=== PATIENT | female | born 1960 | race Caucasian/White ===

== ENCOUNTER 2024-03-01 15:42 | Emergency (ER) | payer OTHER, SELFPAY ==
[2024-03-01 15:46] VITALS: BP 141/74; PULSE 63; TEMP 36.7; O2SAT 98; BMI 42.9
--- NOTE | 2024-03-01 16:02 | ED_ITS ---
HPI HPI - General Adult General Chief complaint: Back Pain/Injury Stated complaint: FLANK PAIN Time Seen by Provider: 03/01/24 15:56 Source: patient Mode of arrival: walk-in Limitations: no limitations History of Present Illness HPI narrative: 63-year-old female presents for pain in her right lateral flank area. She has had it since yesterday. She does a lot of twisting at work. She did not fall and nothing struck her in that area. No dysuria or hematuria. She has no pain if she sits still but if she moves then she has pain. No pain on the contralateral side. Related Data Home Medications ?Medication ?Instructions ?Recorded ?Confirmed amlodipine 2.5 mg tablet 2.5 mg PO DAILY 03/01/24 03/01/24 aripiprazole 10 mg tablet 10 mg PO DAILY 03/01/24 03/01/24 hydrochlorothiazide 25 mg tablet 25 mg PO DAILY 03/01/24 03/01/24 lamotrigine 200 mg tablet 200 mg PO DAILY 03/01/24 03/01/24 levothyroxine 75 mcg tablet 75 mcg PO DAILY 03/01/24 03/01/24 propranolol 80 mg capsule,24 80 mg PO DAILY 03/01/24 03/01/24 hr,extended release rosuvastatin 20 mg tablet 20 mg PO DAILY 03/01/24 03/01/24 venlafaxine 75 mg capsule,extended 75 mg PO DAILY 03/01/24 03/01/24 release 24 hr Previous Rx's ?Medication ?Instructions ?Recorded ibuprofen 800 mg tablet 800 mg PO Q8H PRN pain #20 tabs 03/01/24 methocarbamol 500 mg tablet 500 mg PO Q8H PRN pain #20 tabs 03/01/24 Allergies Allergy/AdvReac Type Severity Reaction Status Date / Time No Known Drug Allergies Allergy Verified 03/01/24 15:46 Opioid HPI Opioid Management Most Recent Opioid Data: Last Pain Scale 6 03/01/24 16:11 Last MAR Pain Assessment 03/01/24 16:11 Review of Systems ROS Narrative A ten point review of systems is negative except as noted above. Exam Narrative Exam Narrative: Nurses note and vital signs reviewed and patient is not hypoxic. General: The patient appears well and in no apparent distress. Patient is resting comfortably on cart. Skin: Warm, dry, no pallor noted. There is no rash noted. Head: Normocephalic, atraumatic Eye: Normal conjunctiva, no drainage Ears, Nose, Mouth, and Throat: oral mucosa is moist. Nares patent. Cardiovascular: Regular Rate and Rhythm Respiratory: Patient is in no distress, no accessory muscle use, lungs are clear to auscultation, no wheezing, rales or rhonchi Back: No bruise or rash to back. No palpable tenderness in the flank area. GI: Soft and nontender Musculoskeletal: No joint swelling Neurological: A&O, normal speech Psychiatric: Cooperative Constitutional Vital Signs, click to edit/add: Last Vital Signs Temp 98.0 F 03/01/24 15:46 Pulse 63 03/01/24 15:46 Resp 18 03/01/24 15:46 BP 141/74 03/01/24 15:46 Pulse Ox 98 03/01/24 15:46 O2 Del Method Room Air 03/01/24 15:46 Course Vital Signs Vital signs: Vital Signs Temperature 98.0 F 03/01/24 15:46 Pulse Rate 63 03/01/24 15:46 Respiratory Rate 18 03/01/24 15:46 Blood Pressure 141/74 03/01/24 15:46 Pulse Oximetry 98 03/01/24 15:46 Oxygen Delivery Method Room Air 03/01/24 15:46 Temperature 98.0 F 03/01/24 15:46 Pulse Rate 63 03/01/24 15:46 Respiratory Rate 18 03/01/24 15:46 Blood Pressure 141/74 03/01/24 15:46 Pulse Oximetry 98 03/01/24 15:46 Oxygen Delivery Method Room Air 03/01/24 15:46 Medical Decision Making [facility] Narrative Medical decision making narrative: Urinalysis is negative. There is no evidence of UTI or kidney stone. She is feeling improved after being given Toradol and is prescribed ibuprofen and Robaxin. Treatment diagnosis and follow-up were discussed with the patient. Differential Diagnosis Differential Diagnosis: UTI, muscle strain, kidney stone Lab Data Lab results reviewed: Yes I reviewed the patient's lab results Labs: Lab Results 03/01/24 Range/Units 15:53 Urine Color Yellow (YELLOW) Urine Clarity Clear (CLEAR) Urine pH 6.0 (5.0-9.0) Ur Specific [place] 1.020 (1.005-1.025) Urine Protein Negative (NEG/TRACE) mg/dL Urine Glucose (UA) Negative (NEGATIVE) mg/dL Urine Ketones Negative (NEGATIVE) mg/dL Urine Occult Blood Negative (NEGATIVE) Urine Nitrite Negative (NEGATIVE) Urine Bilirubin Negative (NEGATIVE) Urine Urobilinogen 0.2 (0.2-1.0) EU/dL Ur Leukocyte Esterase Trace A (NEGATIVE) Urine RBC 0-2 (0-2) #/HPF Urine WBC 2-5 A (NONE SEEN) #/HPF Ur Squamous Epith Cells Few A (NONE/RARE) #/LPF Urine Crystals None seen (None Seen) #/HPF Urine Bacteria Trace A (NONE SEEN) #/HPF Urine Casts Seen A (NONE SEEN) #/LPF Hyaline Casts Rare Urine Mucus Trace A (NONE SEEN) Ur Culture Indicated? No Discharge Plan Discharge Stand Alone Forms: Portal Instructions Chief Complaint: Back Pain/Injury Clinical Impression: Musculoskeletal pain Patient Disposition: Home, Self-Care Time of Disposition Decision: 16:46 Condition: Good Mode of Transportation: Private Vehicle Prescriptions / Home Meds: New ibuprofen 800 mg tablet 800 mg PO Q8H PRN (Reason: pain) Qty: 20 0RF methocarbamol 500 mg tablet 500 mg PO Q8H PRN (Reason: pain) Qty: 20 0RF No Action amlodipine 2.5 mg tablet 2.5 mg PO DAILY aripiprazole 10 mg tablet 10 mg PO DAILY hydrochlorothiazide 25 mg tablet 25 mg PO DAILY lamotrigine 200 mg tablet 200 mg PO DAILY levothyroxine 75 mcg tablet 75 mcg PO DAILY propranolol 80 mg capsule,extended release 24 hr 80 mg PO DAILY rosuvastatin 20 mg tablet 20 mg PO DAILY venlafaxine 75 mg capsule,extended release 24hr 75 mg PO DAILY Print Language: Latvian Instructions: Musculoskeletal Pain (ED) Referrals: MELISSA DANIELS [Primary Care Provider] - 1 week
[2024-03-01 16:04] LABS: Bilirubin Urine NEGATIVE (NEGATIVE); Blood Urine NEGATIVE (NEGATIVE); Clarity Urine CLEAR (CLEAR); Color Urine YELLOW (YELLOW); Glucose Urine UA NEGATIVE (NEGATIVE); Ketones Urine NEGATIVE (NEGATIVE); Leukocyte Esterase Urine TRACE (NEGATIVE); Nitrite Urine NEGATIVE (NEGATIVE); Protein Urine NEGATIVE (NEG/TRACE); Urobilinogen Urine 0.2 EU/dL (0.2-1.0)
[2024-03-01 16:11] LABS: Bacteria Urine TRACE #/HPF (NONE SEEN); Cast Seen? SEEN #/LPF (NONE SEEN); Crystals Seen? None Seen #/HPF (None Seen); Hyaline Casts Urine RARE; Mucus Urine TRACE (NONE SEEN); RBC Urine 0-2 #/HPF (0-2); Squamous Epithelial Cell Urine FEW #/LPF (NONE/RARE); Urine Culture Indicated NO
[2024-03-01] MEDS: KETOROLAC TROMETHAMINE 60 MG/2 ML VIAL IM (16:11)
== END 2024-03-01 16:55 | disposition home or self-care (01) ==
PROVIDERS: Emergency Provider Emergency Medicine; PCP Family Medicine
DX: R10.9 Unspecified abdominal pain (principal)
CPT/HCPCS: 81001; 96372; 99284; J1885

== ENCOUNTER 2024-05-14 01:21 | Outpatient (RCR) | payer OTHER, SELFPAY | END 2024-08-05 23:59 | disposition home or self-care (01) | LOC: LAB 01:21 | PROVIDERS: PCP Family Medicine; Visit Provider Nurse Practitioner Family | DX: E87.6 Hypokalemia (principal) | CPT/HCPCS: 80048 ==